=== PATIENT | female | born 1955 | race African-American/Black ===

== ENCOUNTER 2022-03-20 18:22 | Observation (INO) | payer MEDICARE ==
[2022-03-20 19:30] LABS: Hemoglobin 11.6 g/dL (12.0-15.5); Mean Corpuscular HGB CONC 32.8 g/dL (32.0-36.0); Mean Corpuscular Hemoglobin 26.5 pg (27.0-33.0); Mean Corpuscular Volume 80.8 fl (81.6-98.3); Mean Platelet Volume 11.2 fl (7.4-10.4); Platelet Count 206 10x3/uL (150-450); RBC Distribution Width 14.9 % (11.5-14.5); Red Blood Cell (RBC) Count 4.38 10x6/uL (3.90-5.03)
[2022-03-20 19:31] LABS: ALT (SGPT) 15 U/L (8-55); AST (SGOT) 17 U/L (5-34); Albumin 4.3 g/dL (3.4-4.8); Alkaline Phosphatase 62 U/L (40-110); Anion Gap 15 mmol/L (10-20); BUN (Urea Nitrogen) 15 mg/dL (9.8-20.1); Bilirubin, Total 0.4 mg/dL (0.2-1.2); CK (CPK) 112 U/L (29-168); Calc. Creatinine Clearance 0 mL/min (70-130); Calcium 9.7 mg/dL (7.8-10.44); Carbon Dioxide 26 mmol/L (23-31); Chloride 104 mmol/L (98-107); Globulin 3.2 g/dL (2.4-3.5); Glucose 106 mg/dL (80-115); Lipase 17 U/L (8-78); MDiff Complete? YES; Potassium 3.5 mmol/L (3.5-5.1); Protein, Total 7.5 g/dL (5.8-8.1); Sodium 141 mmol/L (136-145)
[2022-03-20] MEDS ORDERED: Metoclopramide HCl 10 MG/2 ML VIAL ONE (19:32)
[2022-03-20] MEDS ORDERED: diphenhydrAMINE 50 MG/ML VIAL ONE (19:32)
[2022-03-20] MEDS ORDERED: Acetaminophen 500 MG TAB ONE (19:33)
[2022-03-20 19:57] LABS: Nucleated RBC 1 % (0); Reactive Lymphocytes 1 % (0-10)
[2022-03-20 19:58] LABS: Lymphocytes 50 % (21-51); Monocytes 8 % (0-10)
[2022-03-20 20:04] LABS: Eosinophils 1 % (0-10); Neutrophil 39 % (42-75)
[2022-03-20 20:05] LABS: Platelet Morphology Comment Appears Adequate
[2022-03-20] MEDS ORDERED: Ketorolac Tromethamine 30 MG/ML VIAL ONE (20:22)
[2022-03-20] MEDS ORDERED: Ondansetron PF 4 MG/2 ML Vial IVP PRN (23:25)
[2022-03-20] MEDS ORDERED: Calcium Carbonate 500 MG ChewTAB PO PRN (23:25)
[2022-03-20] MEDS ORDERED: Senokot S 8.6-50 MG TAB PO PRN (23:25)
[2022-03-20] MEDS ORDERED: Nitroglycerin 0.4 MG TAB (25 Tab Bottle) SL PRN (23:29)
[2022-03-21 00:42] VITALS: BMI 34.0
[2022-03-21] MEDS ORDERED: Potassium Chloride 20 MEQ TAB PO SCH (01:00)
[2022-03-21] MEDS: Zolpidem Tartrate 5 MG TAB PO PRN (01:58)
[2022-03-21 04:32] LABS: Bilirubin Neg (Negative); Blood, Urine Negative (Negative); Clarity Clear (Clear); Glucose, Urine (Dipstick) Normal (Negative); Ketone, Urine Negative (Negative); Leukocyte Negative (Negative); Nitrite Negative (Negative); Protein, Urine (Dipstick) Negative (Neg-Trace); Urobilinogen Normal mg/dL (Less than 2)
[2022-03-21 04:47] LABS: Bacteria/HPF Rare-Few HPF (None Seen); RBC/HPF 0-3 HPF (0-3); Squamous Epithelial 0-3 HPF (0-3); WBC/HPF None Seen HPF (0-3)
[2022-03-21 05:53] LABS: #Eosinphils 0.2 10x3/uL (0.0-0.5); #Monocytes 0.6 10x3/uL (0.0-1.1); #Neutrophils 3.8 10x3/uL (1.5-8.4); %Basophils 0.6 % (0.0-2.0); %Eosinophils 2.2 % (0.0-6.0); %Lymphocytes 33.7 % (18.0-47.0); %Monocytes 8.7 % (0.0-10.0); %Neutrophils 54.5 % (40.0-75.0); Hemoglobin 12.4 g/dL (12.0-15.5); Mean Corpuscular HGB CONC 32.8 g/dL (32.0-36.0); Mean Corpuscular Hemoglobin 26.6 pg (27.0-33.0); Mean Corpuscular Volume 81.1 fl (81.6-98.3); Mean Platelet Volume 10.9 fl (7.4-10.4); Platelet Count 198 10x3/uL (150-450); RBC Distribution Width 15.3 % (11.5-14.5); Red Blood Cell (RBC) Count 4.66 10x6/uL (3.90-5.03); White Blood Cell (WBC) Count 6.9 10x3/uL (3.5-10.5)
[2022-03-21 06:03] LABS: Anion Gap 13 mmol/L (10-20); BUN (Urea Nitrogen) 14 mg/dL (9.8-20.1); Calc. Creatinine Clearance 87 mL/min (70-130); Calcium 9.9 mg/dL (7.8-10.44); Carbon Dioxide 28 mmol/L (23-31); Cardiac Risk 3.7 (Less than 4.5); Chloride 105 mmol/L (98-107); Cholesterol 153 mg/dl (< 200 Desired); Glucose 117 mg/dL (80-115); HDL Cholesterol 41 mg/dL (>60 Neg Risk); Iron 75 ug/dL (50-170); Iron Binding Capacity, Total 320 mcg/dL (265-497); LDL Cholesterol, Calculated 88 mg/dL; Potassium 4.1 mmol/L (3.5-5.1); Sodium 142 mmol/L (136-145); Triglycerides 118 mg/dL (Less than 150)
[2022-03-21] MEDS ORDERED: Carvedilol 3.125 MG TAB PO SCH (08:00)
[2022-03-21] MEDS ORDERED: Carvedilol 6.25 MG TAB PO SCH (08:30)
[2022-03-21] MEDS: metFORMIN 500 MG TAB PO SCH (08:54)
[2022-03-21] MEDS: Hydrochlorothiazide 25 MG TAB PO SCH (08:54)
[2022-03-21] MEDS: Aspirin 81 mg Enteric Coated Tablet PO SCH (08:54)
[2022-03-21] MEDS: Enoxaparin Sodium 40 MG/0.4 ML SYRINGE SC SCH (08:55)
[2022-03-21] MEDS: Prasugrel 10 MG TAB PO SCH (08:56)
[2022-03-21] MEDS ORDERED: Lisinopril 20 MG TAB PO SCH (09:00)
[2022-03-21] MEDS ORDERED: Lisinopril/Hydrochlorothiazide 20 mg/12.5 mg Tablet PO SCH (09:00)
[2022-03-21] MEDS ORDERED: Amlodipine 10 MG TAB PO SCH (09:00)
[2022-03-21] MEDS: Valsartan 80 MG TAB PO SCH (09:01)
[2022-03-21] MEDS: Acetaminophen 325 MG TAB PO PRN (09:02)
[2022-03-21] MEDS: Cilostazol 100 MG TAB PO SCH (10:27)
[2022-03-21] MEDS ORDERED: Meloxicam 7.5 MG TAB PO SCH (11:00)
[2022-03-21 11:12] LABS: Ferritin 112.79 ng/mL (10-291); Thyroid Stimulating Hormone 1.2678 uIU/mL (0.35-4.94)
[2022-03-21 13:26] LABS: Hemoglobin A1c 7.3 % (4.0-6.0)
[2022-03-21 16:01] LABS: SARS-CoV-2 PCR by NAA Not Detected (NotDetected)
[2022-03-21] MEDS: Carvedilol 6.25 MG TAB PO SCH (17:58)
[2022-03-21] MEDS ORDERED: PRAVASTATIN 20 MG PO SCH (21:00)
[2022-03-22] MEDS: Zolpidem Tartrate 5 MG TAB PO PRN (03:08)
[2022-03-22] MEDS: Acetaminophen 325 MG TAB PO PRN (03:08)
[2022-03-22] MEDS: Enoxaparin Sodium 40 MG/0.4 ML SYRINGE SC SCH (08:58)
[2022-03-22] MEDS: metFORMIN 500 MG TAB PO SCH (08:58)
[2022-03-22] MEDS: Valsartan 80 MG TAB PO SCH (08:59)
[2022-03-22] MEDS: Prasugrel 10 MG TAB PO SCH (08:59)
[2022-03-22] MEDS: Hydrochlorothiazide 25 MG TAB PO SCH (08:59)
[2022-03-22] MEDS: Carvedilol 6.25 MG TAB PO SCH (08:59)
[2022-03-22] MEDS: Cilostazol 100 MG TAB PO SCH (08:59)
[2022-03-22] MEDS: Aspirin 81 mg Enteric Coated Tablet PO SCH (08:59)
[2022-03-22] MEDS ORDERED: Alogliptin 25 MG TAB PO SCH (10:15)
[2022-03-22] MEDS ORDERED: hydrALAZINE 10 MG TAB PO SCH (14:00)
[2022-03-22] MEDS ORDERED: Carvedilol 12.5 MG TAB PO SCH (17:00)
[2022-03-22 17:38] VITALS: BP 166/91; TEMP 97.4
[2022-03-23] MEDS ORDERED: Hydrochlorothiazide 25 MG TAB PO SCH (09:00)
[2022-03-23] MEDS ORDERED: Alogliptin 25 MG TAB PO SCH (09:00)
== END 2022-03-22 19:30 | disposition home or self-care (01) ==
LOC: CSHERS 18:22 → CSHTELE 23:58
PROVIDERS: ADMIT Student in an Organized Health Care Education/Training Program; ATTEND Internal Medicine
DX: R07.89 Other chest pain (principal); R06.02 Shortness of breath; I16.0 Hypertensive urgency; E78.5 Hyperlipidemia, unspecified; I25.10 Atherosclerotic heart disease of native coronary artery without angina pectoris; I25.5 Ischemic cardiomyopathy; E11.9 Type 2 diabetes mellitus without complications; F41.9 Anxiety disorder, unspecified; F32.A Depression, unspecified; K21.9 Gastro-esophageal reflux disease without esophagitis; D64.9 Anemia, unspecified; Z95.5 Presence of coronary angioplasty implant and graft; Z79.84 Long term (current) use of oral hypoglycemic drugs; Z79.899 Other long term (current) drug therapy; I73.9 Peripheral vascular disease, unspecified; Z20.822 Contact with and (suspected) exposure to COVID-19
CPT/HCPCS: 70450; 71045; 80048; 80053; 80061; 81001; 82550; 82728; 82962 ×3; 83036; 83540; 83550; 83690; 83880; 84443; 84484 ×3; 85025 ×2; 85379; 93005 ×2; 93306; 93971; 96372 ×2; 96374; 96375; 99285; G0378 ×3; U0003; U0005; 36415; 36416; 93010; J1200; J1650; J1885; J2765